=== PATIENT | male | born 1980 | race Caucasian/White ===

== ENCOUNTER 2016-06-30 12:09 | Emergency (ER) | payer BC ==
[2016-06-30 12:22] VITALS: BP 135/83
[2016-06-30 13:42] LABS: ANION GAP 13 (5-19); BLOOD UREA NITROGEN 15 mg/dL (7-20); CALCIUM 9.7 mg/dL (8.4-10.2); CARBON DIOXIDE 27 mmol/L (22-30); CHLORIDE 105 mmol/L (98-107); CREATININE RESULT 0.85 mg/dL (0.52-1.25); GLUCOSE 105 mg/dL (75-110); POTASSIUM 3.9 mmol/L (3.6-5.0); SODIUM 144.9 mmol/L (137-145)
[2016-06-30 14:41] LABS: APPEARANCE,URINE CLEAR; BILIRUBIN,URINE NEGATIVE (NEGATIVE); GLUCOSE, URINE 50 mg/dL (NEGATIVE); KETONES,URINE TRACE mg/dL (NEGATIVE); LEUKOCYTE ESTERASE,URINE NEGATIVE (NEGATIVE); NITRITE,URINE NEGATIVE (NEGATIVE); PROTEIN,URINE 100 mg/dL (NEGATIVE); URINE SPECIFIC GRAVITY 1.029; UROBILINOGEN,URINE NEGATIVE mg/dL (<2.0)
--- NOTE | 2016-06-30 15:38 | ER Document Report ---
ED GI/ - General Chief Complaint: Possible Kidney Stone Stated Complaint: RIGHT FLANK PAIN Notes: This is a 36-year-old male with history of one prior kidney stone who presents with sudden onset right flank pain which occurred while he was driving. Patient states he had to char puller. He was nauseated and vomited secondary to pain. He states the pain is very similar to his prior renal colic pain. It radiated to the testicle. He called EMS from the roadside and received Solu- Medrol as well as Dilaudid and Zofran. Patient states he is feeling much better at this time. - HPI Quality of pain: Cramping, Sharp Severity at maximum: Severe Severity in ED: Almost gone - Related Data Allergies/Adverse Reactions: No Known Allergies Allergy (Unverified 06/30/16 12:20) Past Medical History - General Information source: Patient - Social History Smoking Status: Current Every Day Smoker Frequency of alcohol use: None Drug Abuse: None Family History: Reviewed & Not Pertinent Renal/ Medical History: Reports: Hx Kidney Stones Surgical Hx: Negative - Immunizations Hx Diphtheria, Pertussis, Tetanus Vaccination: No Review of Systems - Review of Systems Constitutional: denies: Fever EENT: denies: Throat pain Cardiovascular: denies: Chest pain, Syncope Respiratory: denies: Short of breath Gastrointestinal: Vomiting Genitourinary: Flank pain. denies: Hematuria Musculoskeletal: denies: Leg swelling Skin: denies: Rash Neurological/Psychological: denies: Numbness, Tingling Physical Exam - Vital signs Vitals: Temp Pulse Resp BP Pulse Ox 97.8 F 72 22 H 135/83 H 99 06/30/16 12:17 06/30/16 12:17 06/30/16 12:17 06/30/16 12:17 06/30/16 12:17 - Notes Notes: GENERAL: Well-appearing, well-nourished and in no acute distress. HEAD: Atraumatic, normocephalic. EYES: Pupils equal round and reactive to light, extraocular movements intact, sclera anicteric, conjunctiva are normal. ENT: nares patent, oropharynx clear without exudates. Moist mucous membranes. NECK: Normal range of motion, supple without lymphadenopathy or JVD. LUNGS: Breath sounds clear to auscultation bilaterally and equal. No wheezes rales or rhonchi. HEART: Regular rate and rhythm without murmurs, rubs or gallops. ABDOMEN: Soft, nontender, normoactive bowel sounds. No guarding, no rebound. No masses appreciated. EXTREMITIES: Normal range of motion, no pitting or edema. No clubbing or cyanosis. NEUROLOGICAL: Cranial nerves II through XII grossly intact. Normal speech, normal gait. PSYCH: Normal mood, normal affect. SKIN: Warm, Dry, normal turgor, no rashes or lesions noted. Course - Re-evaluation Re-evalutation: 06/30/16 20:02 Patient was that of a classic renal colic symptoms. He is pain-free at this time. He has no comorbidities. His creatinine is normal. His urine shows a lot of red blood cells. I do not feel any imaging is warranted at this time as he is healthy has normal kidneys and is currently pain-free. I suspect he may very past the stone. He was given a urine strainer and a limited supply of pain medication. He is to follow-up with urology or return to the emergency department should he have recurrence of severe pain, develop a fever or any new concerns. - Vital Signs Vital signs: Temp Pulse Resp BP Pulse Ox 97.8 F 72 22 H 135/83 H 99 06/30/16 12:17 06/30/16 12:17 06/30/16 12:17 06/30/16 12:17 06/30/16 12:17 - Laboratory Result Diagrams: 06/30/16 13:07 Laboratory results interpreted by me: 06/30/16 14:15 Urine Protein 100 H Urine Glucose (UA) 50 H Urine Ketones TRACE H Urine Blood LARGE H Discharge - Discharge Clinical Impression: Renal colic Condition: Good Disposition: HOME, SELF-CARE Instructions: Oral Narcotic Medication ([facility]) Additional Instructions: return if you have recurrent, severe pain, develop a fever, cannot pass urine, or have new concerns. Prescriptions: Ondansetron [Zofran Odt 4 mg Tablet] 1 - 2 tab PO Q4H PRN #15 tab.rapdis PRN Reason: For Nausea/Vomiting Oxycodone HCl/Acetaminophen [Percocet 5-325 mg Tablet] 1 - 2 tab PO Q4H PRN #15 tablet PRN Reason: Referrals: ERON ROSARIO MD [ACTIVE STAFF] - Follow up as needed
== END 2016-06-30 15:50 | disposition home or self-care (01) ==
LOC: ER 12:09
DX: N23 Unspecified renal colic (principal); R11.2 Nausea with vomiting, unspecified; Z87.442 Personal history of urinary calculi; F17.200 Nicotine dependence, unspecified, uncomplicated
CPT/HCPCS: 36415; 80048; 81001; 99284